=== PATIENT | female | born 1990 | race Hispanic/Latino ===

== ENCOUNTER 2019-01-11 19:35 | Emergency (ER) | payer BC, OTHER ==
[~2019-01-11] VITALS: Ht 152.4 cm; Wt 138.3 kg
--- OUTSIDE RECORDS SUMMARY | 2019-01-11 19:37 | XMS REPORT | CCD ---
Author Author Auto Generated Organization [facility] Address Unknown Phone Unavailable Care Team Providers Care Tile Machine Operator Name Role Phone Shaji Dave CP Allergies, Adverse Reactions, Alerts Substance Reaction Status NKDA Active Medications Medication Instructions Start Date End Date Status ciprofloxacin 500 mg 500 mg, 1 tab, PO, Q12H, 6 tab, 11/15/2011 11/18/2011 Ordered oral tablet Substitution Allowed, TAB Vital Signs Most recent to oldest [Reference Range]: 1 Height 152.40 cm (11/14/2011 23:01:00) Weight 113.636 kg (11/14/2011 23:01:00) Results URINALYSIS Most recent to oldest [Reference Range]: 1 UA Turbidity [Clear] Clear (11/15/2011 00:30:00) UA Color [Yellow] Yellow *NA* (11/15/2011 00:30:00) UA pH [5.0-8.0] 6.0 (11/15/2011 00:30:00) UA Spec Grav [<=1.030] 1.010 (11/15/2011 00:30:00) UA Glucose [Negative] Negative (11/15/2011 00:30:00) UA Blood [Negative] Negative (11/15/2011 00:30:00) UA Ketones [Negative] Negative *NA* (11/15/2011 00:30:00) UA Protein [Negative] Negative (11/15/2011 00:30:00) UA Urobilinogen [0.1-1.0 EU/dL] 0.2 EU/dL (11/15/2011 00:30:00) UA Bili [Negative] Negative *NA* (11/15/2011 00:30:00) UA Leuk Est [Negative] Trace *ABN* (11/15/2011 00:30:00) UA Nitrite [Negative] Negative (11/15/2011 00:30:00) UA WBC [0-5 /HPF] 11-20 /HPF *ABN* (11/15/2011 00:30:00) UA RBC [0-2] None Seen (11/15/2011 00:30:00) UA Bacteria [None Seen /HPF] Few /HPF (11/15/2011 00:30:00) UA Sq Epi [Few /LPF] Moderate /LPF *ABN* (11/15/2011 00:30:00) CHEMISTRY Most recent to oldest [Reference Range]: 1 U Preg [Negative] Negative (11/15/2011 00:30:00) Microbiology Reports PROCEDURE:Culture: Urine STATUS: In Progress BODY SITE: COLLECTED DATE/TIME: 11/15/2011 01:16:00 SOURCE: Urine, Clean Catch FREE TEXT SOURCE: PRELIMINARY REPORTS Preliminary Report >100,000 CFU/mL Gram Negative Rods, Lactose Fermenters Subculture In Progress
--- OUTSIDE RECORDS SUMMARY | 2019-01-11 19:37 | XMS REPORT | Continuity of Care Document ---
Author Author [facility] Address Unknown Phone Unavailable Care Team Providers Care Morning News Producer Name Role Phone Zoona Unavailable Unavailable Problems Problem Status Onset Date Classification Date Reported Comments Source GENERAL PAIN Active 01/11/2019 [facility] SHORTNESS OF BREATH, DIZZINESS Active 11/14/2011 [facility] Medications Medication Details Route Status Patient Instructions Ordering Provider Order Date Source ciprofloxacin 500 mg oral tablet 500 mg, 1 tab, PO, Q12H, 6 tab, Substitution Allowed, TAB PO Active Alevism 11/15/2011 [facility] Allergies, Adverse Reactions, Alerts No Known Medication Allergies Immunizations No Data Provided for This Section Results Order Name Results Value Reference Range Date Interpretation Comments Source Microbiology Culture: Urine 11/15/2011 [facility] CHEMISTRY U Preg Negative (11/15/2011 00:30:00) Negative 11/15/2011 Normal [facility] URINALYSIS UA Protein Negative (11/15/2011 00:30:00) Negative 11/15/2011 Normal [facility] URINALYSIS UA Ketones Negative *NA* (11/15/2011 00:30:00) Negative 11/15/2011 NA [facility] URINALYSIS UA Glucose Negative (11/15/2011 00:30:00) Negative 11/15/2011 Normal [facility] URINALYSIS UA Blood Negative (11/15/2011 00:30:00) Negative 11/15/2011 Normal [facility] URINALYSIS UA Bili Negative *NA* (11/15/2011 00:30:00) Negative 11/15/2011 NA [facility] URINALYSIS UA RBC None Seen (11/15/2011 00:30:00) 0 - 2 11/15/2011 Normal [facility] URINALYSIS UA Sq Epi Moderate /LPF *ABN* (11/15/2011 00:30:00) Few 11/15/2011 ABN [facility] URINALYSIS UA WBC 11-20 /HPF *ABN* (11/15/2011 00:30:00) 0 - 5 11/15/2011 ABN [facility] URINALYSIS UA Bacteria Few /HPF (11/15/2011 00:30:00) None Seen 11/15/2011 Normal [facility] URINALYSIS UA Urobilinogen 0.2 0.1 - 1.0 11/15/2011 Normal [facility] URINALYSIS UA Nitrite Negative (11/15/2011 00:30:00) Negative 11/15/2011 Normal [facility] URINALYSIS UA Leuk Est Trace *ABN* (11/15/2011 00:30:00) Negative 11/15/2011 ABN [facility] URINALYSIS UA Spec Grav 1.010 <=1.030 11/15/2011 Normal [facility] URINALYSIS UA pH 6.0 5.0 - 8.0 11/15/2011 Normal [facility] URINALYSIS UA Color Yellow *NA* (11/15/2011 00:30:00) Yellow 11/15/2011 NA [facility] URINALYSIS UA Turbidity Clear (11/15/2011 00:30:00) Clear 11/15/2011 Normal [facility] Pathology Reports No Data Provided for This Section Diagnostic Reports Report Value Date Source Chest 1view DX Clinical Indication: - chest pain; Comparison: None FINDINGS: The portable AP single view radiograph provided for review. The exam demonstrates mild decreased lung volumes without interstitial or airspace opacities, pleural effusions or pneumothorax. The heart size and pulmonary vasculature are normal. The trachea is midline. There are no clinically significant osseous abnormalities noted. IMPRESSION: No chest radiographic evidence of acute cardiopulmonary disease. SL: [id number] 01/11/2019 [facility] Consultation Notes No Data Provided for This Section Discharge Summaries No Data Provided for This Section History and Physicals No Data Provided for This Section Vital Signs Vital Sign Value Date Comments Source Height 152.40 cm 11/15/2011 [facility] Weight 113.636 11/15/2011 [facility] Encounters Location Location Details Encounter Type Encounter Number Reason For Visit Attending Provider ADM Date DC Date Status Source [facility] Emergency [id number] JAZZ HALEYBALL 11/14/2011 11/15/2011 Discharged [facility] Procedures No Data Provided for This Section Assessment and Plan No Data Provided for This Section Plan of Care No Data Provided for This Section Social History No Data Provided for This Section Family History No Data Provided for This Section Advance Directives No Data Provided for This Section Functional Status No Data Provided for This Section
[2019-01-11] MEDS ORDERED: ONDANSETRON HCL INJ 2MG/ML 2ML 2 MG/ML VIAL IV ONE (20:03)
[2019-01-11] MEDS ORDERED: MORPHINE SULFATE INJ 4 MG/ML INJ 1ML IV ONE (20:15)
[2019-01-11] MEDS ORDERED: SODIUM CHLORIDE 0.9% 1000ML 1,000 ML IV ONE (20:15)
[2019-01-11 21:00] LABS: BASOPHILS % 0.4 % (0.0-1.0); EOSINOPHILS % 0.3 % (0.0-6.0); HEMATOCRIT 41.2 % (34.2-44.1); HEMOGLOBIN 14.3 g/dL (12.0-16.0); LYMPHOCYTES # (AUTO) 1.3 (1.0-3.2); LYMPHOCYTES % 12.8 % (18.0-39.1); MEAN CORPUSCULAR HEMOGLOBIN 29.9 pg (28-32); MEAN CORPUSCULAR HGB CONC 34.7 g/dL (31-35); MEAN CORPUSCULAR VOLUME 86.2 fL (81-99); MONOCYTES # (AUTO) 0.6 (0.2-0.8); MONOCYTES % 5.7 % (4.4-11.3); NEUTROPHILS # (AUTO) 8.4 (2.1-6.9); NEUTROPHILS % 80.5 % (38.7-80.0); PLATELET COUNT 280 x10e3/uL (140-360); RED BLOOD COUNT 4.78 x10e6/uL (3.6-5.1); RED CELL DISTRIBUTION WIDTH 13.2 % (11.7-14.4)
[2019-01-11 21:24] LABS: ALANINE AMINOTRANSFERASE 67 IU/L (0-55); ALBUMIN 3.5 g/dL (3.5-5.0); ALBUMIN/GLOBULIN RATIO 0.8 (0.8-2.0); ALKALINE PHOSPHATASE 104 IU/L (40-150); ANION GAP 15.8 mmol/L (8-16); BLOOD UREA NITROGEN 8 mg/dL (7-26); BUN/CREATININE RATIO 10 (6-25); CALCIUM 9.1 mg/dL (8.4-10.2); CARBON DIOXIDE 21 mmol/L (22-29); CHLORIDE 103 mmol/L (98-107); CREATINE KINASE 78 IU/L (29-168); CREATININE, SERUM 0.82 mg/dL (0.57-1.11); EST GLOMERULAR FILTRATION RATE > 60 ML/MIN (60-); GLUCOSE 130 mg/dL (74-118); POTASSIUM 3.8 mmol/L (3.5-5.1); SODIUM 136 mmol/L (136-145)
[2019-01-11 21:42] LABS: AMYLASE 40 U/L (25-125); LIPASE 6 U/L (8-78)
[2019-01-11] MEDS ORDERED: IOPAMIDOL 370 MG/ML 200 ML INFUS..BTL INJ ONE (22:35)
[2019-01-11] MEDS ORDERED: SODIUM CHLORIDE 0.9% 50ML 50 ML ONE (22:35)
--- NOTE | 2019-01-11 22:42 | Diagnostic Imaging Report ---
EXAM: CT Abdomen and Pelvis WITH contrast INDICATION: ^LEFT SIE ABD PAIN N/V/D ^20190111 ^[id number] ^Y COMPARISON: None. TECHNIQUE: Abdomen and pelvis were scanned utilizing a multidetector helical scanner from the lung base to the pubic symphysis after administration of IV contrast. Coronal and sagittal reformations were obtained. Dose modulation, iterative reconstruction, and/or weight based adjustment of the mA/kV was utilized to reduce the radiation dose to as low as reasonably achievable. Routine protocol was performed. Scan was performed when during portal venous phase. IV CONTRAST: 100 mL of Isovue-370 ORAL CONTRAST: Water COMPLICATIONS: None RADIATION DOSE: Total DLP: 1440.62 mGy*cm Estimated effective dose: (DLP x 0.015 x size factor) mSv CTDIvol has been reviewed. It is below the limits set by the Radiation Protocol Committee (RPC). FINDINGS: LINES and TUBES: None. LOWER THORAX: 5 mm left lower lobe nodule. HEPATOBILIARY: No focal hepatic lesions. No biliary ductal dilation. GALLBLADDER: No radio-opaque stones or sludge. No wall thickening. SPLEEN: No splenomegaly. PANCREAS: No focal masses or ductal dilatation. ADRENALS: No adrenal nodules KIDNEYS/URETERS: Kidneys enhance symmetrically. Minimal right hydronephrosis and mild hydroureter. No cystic or solid mass lesions. No stones. GI TRACT: No abnormal distention, wall thickening, or evidence of bowel obstruction. Status post gastric lap band surgery. Appendix is normal. PELVIC ORGANS/BLADDER: Unremarkable. LYMPH NODES: No lymphadenopathy. VESSELS: Unremarkable. PERITONEUM / RETROPERITONEUM: No free air or fluid. BONES: Unremarkable. SOFT TISSUES: Unremarkable. IMPRESSION: 1. No acute infiltrate process in the abdomen/pelvis. 2. Minimal right hydronephrosis and mild hydroureter without evidence of obstructing calculus. Recently passed stone is a possibility. 3. 5 mm left lower lobe lung nodule. Without risk factors, no follow-up is necessary. With risk factors, follow-up with low-dose chest CT in one year is recommended. Signed by: Dr. Darian Valdivia MD on 01/11/2019 10:39 PM
[2019-01-11 23:20] LABS: BILIRUBIN,URINE NEGATIVE (NEGATIVE); CLARITY,URINE SL CLOUDY (CLEAR); COLOR,URINE YELLOW (YELLOW); KETONES,URINE NEGATIVE (NEGATIVE); LEUKOCYTE ESTERASE ,URINE NEGATIVE (NEGATIVE); NITRITE,URINE NEGATIVE (NEGATIVE); PROTEIN,URINE DIPSTICK NEGATIVE (NEGATIVE); URINE UROBILINOGEN 0.2 mg/dL (0.2 - 1)
[2019-01-11 23:29] LABS: BACTERIA,URINE FEW /HPF; EPITHELIAL CELLS,URINE MODERATE /LPF
== END 2019-01-12 | disposition home or self-care (01) ==
LOC: ER 19:35
DX: R10.13 Epigastric pain (principal); R10.32 Left lower quadrant pain; R30.0 Dysuria; N30.91 Cystitis, unspecified with hematuria; E66.9 Obesity, unspecified
CPT/HCPCS: 36415; 74177; 80053; 81001; 81025; 82150; 82550; 82553; 83690; 84484; 85025; 93005; 96374; 96375; 99284; J2270; J2405; J7030; Q9967

== ENCOUNTER 2020-03-14 18:45 | Emergency (ER) | payer BC, OTHER ==
[~2020-03-14] VITALS: Ht 152.4 cm; Wt 138.3 kg
[2020-03-14 21:38] LABS: BILIRUBIN,URINE SMALL (NEGATIVE); CLARITY,URINE CLOUDY (CLEAR); COLOR,URINE YELLOW (YELLOW); KETONES,URINE TRACE (NEGATIVE); LEUKOCYTE ESTERASE ,URINE NEGATIVE (NEGATIVE); NITRITE,URINE NEGATIVE (NEGATIVE); PREGNANCY TEST, URINE NEGATIVE (NEGATIVE); PROTEIN,URINE DIPSTICK TRACE (NEGATIVE); URINE UROBILINOGEN 0.2 mg/dL (0.2 - 1)
--- NOTE | 2020-03-14 21:39 | Emergency Department Note ---
History of Present Illnes History of Present Illness Chief Complaint: Back Pain History of Present Illness This is a 30 year old female presents to the ED for r flank pain with dysuria. Historian: Patient Arrival Mode: Car Onset (how long ago): week(s) (1) Radiation: Reports flank Severity: moderate Onset quality: gradual Duration (how long): week(s) (1) Timing of current episode: constant Progression: worsening Chronicity: new Relieving factors: none Exacerbating factors: none Associated symptoms: Reports fever/chills, Reports nausea/vomiting Past Medical/Family History Physician Review I have reviewed the patient's past medical and family history. Any updates have been documented here. Past Medical History Recent Fever: No Clinical Suspicion of Infectio: No New/Unexplained Change in Ment: No Past Medical History: Hypothyroidism, Kidney Stones Past Surgical History: Bariatric Surgery Other Surgery: LAP BAND Social History Smoking Cessation: Never Smoker Alcohol Use: None Physically hurt or threatened: No Other Last Tetanus: UTD Review of Systems Review of Systems Constitutional: Reports fever EENTM: Reports no symptoms Cardiovascular: Reports no symptoms Respiratory: Reports no symptoms Gastrointestinal: Reports nausea Genitourinary: Reports dysuria, Reports pain (flank) Musculoskeletal: Reports no symptoms Integumentary: Reports no symptoms Neurological: Reports no symptoms Psychological: Reports no symptoms Endocrine: Reports no symptoms Hematological/Lymphatic: Reports no symptoms Physical Exam Related Data Allergies: Coded Allergies: No Known Drug Allergies (Verified Allergy, Unknown, 01/11/19) Triage Vital Signs Vital Signs Date Time Temp Pulse Resp B/P (MAP) Pulse Ox O2 Delivery O2 Flow Rate FiO2 03/14/20 19:22 98.2 74 20 156/97 100 Room Air Vital signs reviewed: Yes Physical Exam CONSTITUTIONAL Constitutional: Present obese HENT HENT: Present normocephalic, Present atraumatic, Present oropharynx clear/moist, Present nose normal HENT L/R: Present left ext ear normal, Present right ext ear normal EYES Eyes: Reports PERRL, Reports conjunctivae normal NECK Neck: Present ROM normal PULMONARY Pulmonary: Present effort normal, Present breath sounds normal CARDIOVASCULAR Cardiovascular: Present regular rhythm, Present heart sounds normal, Present capillary refill normal, Present normal rate GASTROINTESTINAL Abdominal: Present right CVA tenderness GENITOURINARY Genitourinary: Present exam deferred SKIN Skin: Present warm, Present dry MUSCULOSKELETAL Musculoskeletal: Present ROM normal NEUROLOGICAL Neurological: Present alert, Present oriented x 3, Present no gross motor or sensory deficits PSYCHOLOGICAL Psychological: Present mood/affect normal, Present judgement normal Results Laboratory Laboratory Laboratory Tests Test 03/14/20 19:24 Urine Color Yellow (YELLOW) Urine Clarity Cloudy (CLEAR) Urine pH 5.5 (5 - 7) Urine Specific [place] 1.030 (1.010-1.025) Urine Protein Trace (NEGATIVE) Urine Glucose (UA) Negative (NEGATIVE) Urine Ketones Trace (NEGATIVE) Urine Blood Trace (NEGATIVE) Urine Nitrite Negative (NEGATIVE) Urine Bilirubin Small (NEGATIVE) Urine Urobilinogen 0.2 mg/dL (0.2 - 1) Urine Leukocyte Esterase Negative (NEGATIVE) Urine Test Negative (NEGATIVE) Assessment & Plan Medical Decision Making MDM Diff Dx : UTI, kidney infection, PID Assessment & Plan Final Impression: (1) Urinary tract infection Depart Disposition: HOME, SELF-CARE Last Vital Signs Date Time Temp Pulse Resp B/P (MAP) Pulse Ox O2 Delivery O2 Flow Rate FiO2 03/14/20 19:22 98.2 74 20 156/97 100 Room Air TIM MONZON DO Mar 14, 2020 21:39
[2020-03-14 21:50] LABS: BACTERIA,URINE MANY /HPF; EPITHELIAL CELLS,URINE MANY /LPF; RBC,URINE 0-5 /HPF (0-5); TRANSITIONAL EPI CELLS,URINE FEW
--- OUTSIDE RECORDS SUMMARY | 2020-03-16 16:31 | XMS REPORT | Continuity of Care Document ---
Author Author [facility] Organization [facility] Address [address] [place] [address] Phone Unavailable Care Team Providers Care Pulmonary Fellow Name Role Phone NO, PCP PCP Unavailable Darby DE LEON Attphymelchor Unavailable Payers Payer Name Policy Type Policy Number Effective Date Expiration Date S mirna [facility] [id number] 2019 [id number] 2019 00:[facility]00 [facility] Problems Condition Name Condition Details Condition Category Status Onset Date Resolution Date Last Treatment Date Treating Clinician Comments Source Urinary tract infection Problem Active [facility] Allergies, Adverse Reactions, Alerts Allergy Name Allergy Type Status Severity Reaction(s) Onset Date Inacti ve Date Treating Clinician Comments Source No Known Allergies DA Active U 2020-01-31 00:00:00 [facility] No Known Allergies DA Active U 2019-04-19 00:00:00 [facility] Social History Social Habit Start Date Stop Date Quantity Comments Source Sex Assigned At 1990 00:00:00 1990 00:00:00 Female [facility] Medications This patient has no known medications. Vital Signs Vital Name Observation Time Observation Value Comments Source Weight 2020-03-14 19:22:00 305 [lb_av] [facility] BMI (Body Mass Index) 2020-03-14 19:22:00 59.6 kg/m2 [facility] Procedures This patient has no known procedures. Plan of Care Planned Activity Planned Date Details Comments Source Instructions Urinary Tract Infection - Women [facility] Encounters Start Date/Time End Date/Time Encounter Type Admission Type Attendi [facility] Care Department Encounter ID Source 2020-03-14 19:40:00 2020-03-14 22:17:00 Departed Emergency Room [facility] [id number] [facility] 2019-01-11 19:35:00 2019-01-12 00:00:00 Departed Emergency Room [address] [facility] [id number] [facility] 2019-01-11 15:25:00 2019-01-11 15:25:00 Emergency E [facility] [address] [facility] Results Test Description Test Time Test Comments Results Result Comments Source Urine color determination 2020-03-14 19:24:00 Test Item Urine Color (test code = 5778-6) YELLOW YELLOW DARK [facility]LLOW[facility] [id number] 19:24:00* Test Item Value Reference Range Interpretation Comments Urine Clarity (test code = 61477-3) CLOUDY [facility]AR [facility] by Test strip 2020-03-14 19:24:00* Test Item Value Reference Range Interpretation Comments Urine Specific [place] (test code = 5811-5) 1.030 1.010-1.02 5 [facility] pH measurement by automated test [id number] 19:24:00* Test Item Value Reference Range Interpretation Comments Urine pH (test code = 88509-0) 5.5 5-7 [facility] leukocyte esterase detection by [id number] 19:24:00* Test Item Value Reference Range Interpretation Comments Urine Leukocyte Esterase (test code = 5799-2) NEGATIVE NEGATIVE [facility] nitrite [id number] 19:24:00* Test Item Value Reference Range Interpretation Comments Urine Nitrite (test code = 63429-8) NEGATIVE NEGATIVE [facility] protein measurement by test strip (mass/volume)2020-03-14 19:24:00* Test Item Value Reference Range Interpretation Comments Urine Protein (test code = 5804-0) TRACE NEGATIVE [facility] glucose [id number] 19:24:00* Test Item Value Reference Range Interpretation Comments Urine Glucose (UA) (test code = 2349-9) NEGATIVE NEGATIVE [facility] ketones detection by automated test [id number] 19:24:00* Test Item Value Reference Range Interpretation Comments Urine Ketones (test code = 07543-3) TRACE NEGATIVE [facility] urobilinogen measurement by test strip (mass/volume)2020-03-14 19:24:00* Test Item Value Reference Range Interpretation Comments Urine Urobilinogen (test code = 67171-0) 0.2 0.2-1 [facility] total bilirubin measurement (mass/volume)2020-03-14 19:24:00* Test Item Value Reference Range Interpretation Comments Urine Bilirubin (test code = 1978-6) SMALL NEGATIVE [facility] erythrocytes [id number] 19:24:00* Test Item Value Reference Range Interpretation Comments Urine Blood (test code = 55492-4) TRACE NEGATIVE [facility] sediment leukocyte count by microscopy (number/high power field)2020-03-14 19:24:00* Test Item Value Reference Range Interpretation Comments Urine WBC (test code = 5821-4) NONE 0-5 [facility]rythrocytes detection in urine sediment by light [id number] 19:24:00* Test Item Value Reference Range Interpretation Comments Urine RBC (test code = 61075-3) 0-5 0-5 [facility] detection in urine sediment by light [id number] 19:24:00* Test Item Value Reference Range Interpretation Comments Urine Bacteria (test code = 11022-5) MANY NONE [facility]Allen[facility]pithelial cells detection in urine sediment by light [id number] 19:24:00* Test Item Value Reference Range Interpretation Comments Urine Epithelial Cells (test code = 74925-6) MANY NONE [facility]AllenTransitional cells detection in urine sediment by light [id number] 19:24:00* Test Item Value Reference Range Interpretation Comments Urine Transitional Epithelial Cells (test code = 8249-5) FEW NONE [facility] human chorionic gonadotropin (hCG) [id number] 19:24:00* Test Item Value Reference Range Interpretation Comments Urine Test (test code = 2106-3) NEGATIVE NEGATIVE [facility] 15[facility]24[facility]00 RUN DATE: 02/05/20 [facility] PAGE 1 RUN TIME: 1524 Specimen Inqui ry RUN USER: INTERFACE PATIENT: HARITHA MIRAMONTES ACCT #: [id number] LOC: [place] U #: [id number] AGE/SX: 30/F ROOM: [facility] RE02/05/20[facility] DR: Charli Buckley MD : 86 BED: A DIS: STATUS: ADM IN TLOC: SPEC #: [id number] RECD: 02/04/20 STATUS: MALENA LOTT #: [id number] JEFRY: 02/04/20- SUBM DR: Charli Buckley MD ENTERED: 02/04/20 SP TYPE: STOMACH OTHR DR: Sheela Tammy melinda or Family Physician Ish Sandoval MDORDERED: GROSS COPIES TO: No Primary or Family Physic Charli Reza MD [address] [place] [address] Ish Sandoval MD [address] [place] [address] P ROCEDURES: GROSS (02/05/20-144) TISSUES: STOMACH, NOS - PORTION OF [facility] CLINICAL HISTORY COLLECTION DATE: 02/04/20 FINAL DIAGNOS IS Portion of stomach, laparoscopic sleeve gastrectomy: GASTRIC MUCOSA , NO PATHOLOGIC ALTERATION DMW/jono D [id number] MACROSCOPIC The specimen is received in formalin, labeled with the patient's name, and i dentified as "portion of stomach". It consists of a portion of stomach which measures 18 x 4 x 3.3 cm. A few adhesions are noted on the serosal surface. The mucosal margins are stapled. The stomach is opened and contains a small a mount of bloody fluid. The mucosal folds appear unremarkable. A sample of th e specimen is submitted for microscopic examination in a single cassette. CONTINUED ON NEXT PAGE RUN DATE: 02/05/20 [facility] PAGE 2 RUN TIME: 1524 Specimen Inquiry RUN USER: INTERFACE -- SPEC #: [id number] PATIENT: HARITHA MIRAMONTES #[id number] (Continued) MACROSCOPIC (Continued) GROSS PERFORMED AT [facility] [address] [place] [address] (P)[phone] MICROSCOPIC All of the stains, including any controls performed, stain appropriately. MICROSCOPIC PERFORMED AT [facility] [address] [place] [address] [phone] PERFORMING SITE Diagnosis performed at: [facility] are [facility], [place] [address] [place] [address] Signed SIGNATURE Marie Dumont MD 02/05/20 1524 END OF REPORT BASIC METABOLIC [id number] 07:39:00* Test Item Value Reference Range Interpretation Comments SODIUM (test code = NA) 140 mmol/L 136-145 N POTASSIUM (test code = K) 4.4 mmol/L 3.5-5.1 N CHLORIDE (test code = CL) 109.0 mmol/L 98-107 H CARBON DIOXIDE (test code = CO2) 25.0 mmol/L 21-32 N ANION GAP (test code = GAP) 10.4 10-20 N GLUCOSE (test code = GLU) 95 mg/dL 74-106 N BLOOD UREA NITROGEN (test code = BUN) 7 mg/dL 7-18 N GLOMERULAR FILTRATION RATE (test code = GFR) > 60 mL/min >=60 Estimated GFR by using Modified MDRD formula.Chronic kidney disease is defined as either kidney damageor GFR <60 mL/min/1.73 m2 for >3 months. CREATININE (test code = CREAT) 0.70 mg/dL 0.55-1.02 N Note change in reference range due to change in reagent. BUN/CREATININE RATIO (test code = BUN/CREA) 10.1 10-20 N CALCIUM (test code = CA) 8.4 mg/dL 8.5-10.1 L CBC W/AUTO [id number] 06:46:00* Test Item Value Reference Range Interpretation Comments WHITE BLOOD CELL (test code = WBC) 15.2 K/mm3 4.5-12.5 H RED BLOOD CELL (test code = RBC) 4.60 mill/mm3 3.7-5.2 N HEMOGLOBIN (test code = HGB) 13.4 gram/dL 11.5-15.5 N HEMATOCRIT (test code = HCT) 41.7 % 36.0-46.0 N MEAN CELL VOLUME (test code = MCV) 90.7 fL 80-98 N MEAN CELL HGB (test code = MCH) 29.1 picogram 27.0-33.0 N MEAN CELL HGB CONCETRATION (test code = MCHC) 32.1 gram/dL 33.0-36. 0 L RED CELL DISTRIBUTION WIDTH (test code = RDW) 14.0 % 11.6-16. 2 N RED CELL DISTRIBUTION WIDTH SD (test code = RDW-SD) 46.2 fL 37 .0-51.0 N PLATELET COUNT (test code = PLT) 302 K/mm3 150-450 N MEAN PLATELET VOLUME (test code = MPV) 9.6 fL 6.7-11.0 N NEUTROPHIL % (test code = NT%) 84.2 % 39.0-69.0 H IMMATURE GRANULOCYTE % (test code = IG%) 0.4 % 0.0-5.0 N LYMPHOCYTE % (test code = LY%) 9.3 % 25.0-55.0 L MONOCYTE % (test code = MO%) 6.0 % 0.0-10.0 N EOSINOPHIL % (test code = EO%) 0.0 % 0.0-5.0 N BASOPHIL % (test code = BA%) 0.1 % 0.0-1.0 N NUCLEATED RBC % (test code = NRBC%) 0.0 % 0-0 N NEUTROPHIL # (test code = NT#) 12.84 K/mm3 1.8-7.7 H IMMATURE GRANULOCYTE # (test code = IG#) 0.06 x10 3/uL 0-0.03 H LYMPHOCYTE # (test code = LY#) 1.41 K/mm3 1.0-5.0 N MONOCYTE # (test code = MO#) 0.91 K/mm3 0-0.8 H EOSINOPHIL # (test code = EO#) 0.00 K/mm3 0.0-0.5 N BASOPHIL # (test code = BA#) 0.02 K/mm3 0.0-0.2 N NUCLEATED RBC # (test code = NRBC#) 0.00 K/mm3 0.0-0.1 N CBC W/AUTO [id number] 06:40:00* Test Item Value Reference Range Interpretation Comments WHITE BLOOD CELL (test code = WBC) K/mm3 4.5-12.5 RED BLOOD CELL (test code = RBC) mill/mm3 3.7-5.2 HEMOGLOBIN (test code = HGB) 13.4 gram/dL 11.5-15.5 N HEMATOCRIT (test code = HCT) 41.7 % 36.0-46.0 N MEAN CELL VOLUME (test code = MCV) fL 80-98 MEAN CELL HGB (test code = MCH) picogram 27.0-33.0 MEAN CELL HGB CONCETRATION (test code = MCHC) gram/dL 33.0-36. 0 RED CELL DISTRIBUTION WIDTH (test code = RDW) % 11.6-16. 2 RED CELL DISTRIBUTION WIDTH SD (test code = RDW-SD) fL 37 .0-51.0 PLATELET COUNT (test code = PLT) 302 K/mm3 150-450 N MEAN PLATELET VOLUME (test code = MPV) fL 6.7-11.0 NEUTROPHIL % (test code = NT%) % 39.0-69.0 IMMATURE GRANULOCYTE % (test code = IG%) % 0.0-5.0 LYMPHOCYTE % (test code = LY%) % 25.0-55.0 MONOCYTE % (test code = MO%) % 0.0-10.0 EOSINOPHIL % (test code = EO%) % 0.0-5.0 BASOPHIL % (test code = BA%) % 0.0-1.0 NEUTROPHIL # (test code = NT#) K/mm3 1.8-7.7 LYMPHOCYTE # (test code = LY#) K/mm3 1.0-5.0 MONOCYTE # (test code = MO#) K/mm3 0-0.8 EOSINOPHIL # (test code = EO#) K/mm3 0.0-0.5 BASOPHIL # (test code = BA#) K/mm3 0.0-0.2 HCG SERUM [id number] 08:07:00* Test Item Value Reference Range Interpretation Comments HCG SERUM QUAL (test code = HCGQL) NEGATIVE NEGATIVE This HCGQL test is NOT applicable for MALE patients.Check with nurse about probable order error.If Tumor Marker Test needed, nurse should order test "HCGTU"(Test #550.09403) [id number] 08:01:00* Test Item Value Reference Range Interpretation Comments GLUBED (test code = GLUBED) 81 mg/dL 74-106 N Performed by certified dyed yarn operator at [facility] Novel Coronavirus 02:06:00* Test Item Value Reference Range Interpretation Comments Novel Coronavirus 2019 Inhouse (test code = [id number]) Negative Negative Positive results are indicative of the presence zxVQQF-GmZ-8 RNA, clinical correlation with patient historyand other diagnostic information is necessary to determinepatient infection status. Positive results do not rule outbacterial infection or co-infection with other viruses. Negative results do not preclude SARS-CoV-2 infection andshould not be used as the sole basis for patient managementdecisions. Negative results must be combined with otherclinical observations, patient history, and epidemiologicalinformation. Detection of SARS-CoV-2 RNA may be affected bysample collection methods, storage conditions, and/or stageof infection. Viral RNA mutations, vaccinations, antiviraltherapeutics, antibiotics, chemotherapeutic orimmunosuppressant drugs have not been evaluated for effectson detection. Results are for the identification of SARS-CoV-2 RNA usingthe Murphy M2000 System under the FDA Emergency UseAuthorization. The testing is performed by personneltrained in the procedures for the Murphy M2000 moleculardiagnostic SARS-CoV-2 assay in vitro. Novel Coronavirus [id number] 02:06:00* Test Item Value Reference Range Interpretation Comments Novel Coronavirus 2019 Inhouse (test code = [id number]) Negative Negative Positive results are indicative of the presence njEQGC-XmZ-7 RNA, clinical correlation with patient historyand other diagnostic information is necessary to determinepatient infection status. Positive results do not rule outbacterial infection or co-infection with other viruses. Negative results do not preclude SARS-CoV-2 infection andshould not be used as the sole basis for patient managementdecisions. Negative results must be combined with otherclinical observations, patient history, and epidemiologicalinformation. Detection of SARS-CoV-2 RNA may be affected bysample collection methods, storage conditions, and/or stageof infection. Viral RNA mutations, vaccinations, antiviraltherapeutics, antibiotics, chemotherapeutic orimmunosuppressant drugs have not been evaluated for effectson detection. Results are for the identification of SARS-CoV-2 RNA usingthe Murphy M2000 System under the FDA Emergency UseAuthorization. The testing is performed by personneltrained in the procedures for the Murphy M2000 moleculardiagnostic SARS-CoV-2 assay in vitro. COMPREHENSIVE METABOLIC [id number] 14:29:00* Test Item Value Reference Range Interpretation Comments SODIUM (test code = NA) 139 mmol/L 136-145 N POTASSIUM (test code = K) 4.2 mmol/L 3.5-5.1 N CHLORIDE (test code = CL) 104.0 mmol/L 98-107 N CARBON DIOXIDE (test code = CO2) 29.0 mmol/L 21-32 N ANION GAP (test code = GAP) 10.2 10-20 N GLUCOSE (test code = GLU) 86 mg/dL 74-106 N BLOOD UREA NITROGEN (test code = BUN) 12 mg/dL 7-18 N GLOMERULAR FILTRATION RATE (test code = GFR) > 60 mL/min >=60 Estimated GFR by using Modified MDRD formula.Chronic kidney disease is defined as either kidney damageor GFR <60 mL/min/1.73 m2 for >3 months. CREATININE (test code = CREAT) 0.70 mg/dL 0.55-1.02 N Note change in reference range due to change in reagent. BUN/CREATININE RATIO (test code = BUN/CREA) 16.2 10-20 N TOTAL PROTEIN (test code = PROT) 8.6 gram/dL 6.4-8.2 H ALBUMIN (test code = ALB) 3.6 g/dL 3.4-5.0 N GLOBULIN (test code = GLOB) 5.0 gram/dL 2.7-4.2 H ALBUMIN/GLOBULIN RATIO (test code = A/G) 0.7 0.75-1.50 L CALCIUM (test code = CA) 9.6 mg/dL 8.5-10.1 N BILIRUBIN TOTAL (test code = BILT) 0.40 mg/dL 0.0-1.0 N SGOT/AST (test code = AST) 65 IUnit/L 15-37 H SGPT/ALT (test code = ALT) 91 IUnit/L 12-78 H ALKALINE PHOSPHATASE TOTAL (test code = ALKP) 117 IUnit/L 45-117 N Note change in reference range due to change in reagent. COMPREHENSIVE METABOLIC [id number] 14:21:00* Test Item Value Reference Range Interpretation Comments SODIUM (test code = NA) 139 mmol/L 136-145 N POTASSIUM (test code = K) 4.2 mmol/L 3.5-5.1 N CHLORIDE (test code = CL) 104.0 mmol/L 98-107 N CARBON DIOXIDE (test code = CO2) mmol/L 21-32 ANION GAP (test code = GAP) 10-20 GLUCOSE (test code = GLU) mg/dL 74-106 BLOOD UREA NITROGEN (test code = BUN) mg/dL 7-18 GLOMERULAR FILTRATION RATE (test code = GFR) mL/min >=60 CREATININE (test code = CREAT) mg/dL 0.55-1.02 BUN/CREATININE RATIO (test code = BUN/CREA) 10-20 TOTAL PROTEIN (test code = PROT) gram/dL 6.4-8.2 ALBUMIN (test code = ALB) g/dL 3.4-5.0 GLOBULIN (test code = GLOB) gram/dL 2.7-4.2 ALBUMIN/GLOBULIN RATIO (test code = A/G) 0.75-1.50 CALCIUM (test code = CA) mg/dL 8.5-10.1 BILIRUBIN TOTAL (test code = BILT) mg/dL 0.0-1.0 SGOT/AST (test code = AST) IUnit/L 15-37 SGPT/ALT (test code = ALT) IUnit/L 12-78 ALKALINE PHOSPHATASE TOTAL (test code = ALKP) IUnit/L 45-117 CBC W/AUTO [id number] 13:55:00* Test Item Value Reference Range Interpretation Comments WHITE BLOOD CELL (test code = WBC) 10.0 K/mm3 4.5-12.5 N RED BLOOD CELL (test code = RBC) 4.98 mill/mm3 3.7-5.2 N HEMOGLOBIN (test code = HGB) 14.6 gram/dL 11.5-15.5 N HEMATOCRIT (test code = HCT) 43.6 % 36.0-46.0 N MEAN CELL VOLUME (test code = MCV) 87.6 fL 80-98 N MEAN CELL HGB (test code = MCH) 29.3 picogram 27.0-33.0 N MEAN CELL HGB CONCETRATION (test code = MCHC) 33.5 gram/dL 33.0-36. 0 N RED CELL DISTRIBUTION WIDTH (test code = RDW) 13.4 % 11.6-16. 2 N RED CELL DISTRIBUTION WIDTH SD (test code = RDW-SD) 42.3 fL 37 .0-51.0 N PLATELET COUNT (test code = PLT) 317 K/mm3 150-450 N MEAN PLATELET VOLUME (test code = MPV) 9.2 fL 6.7-11.0 N NEUTROPHIL % (test code = NT%) 68.9 % 39.0-69.0 N IMMATURE GRANULOCYTE % (test code = IG%) 0.3 % 0.0-5.0 N LYMPHOCYTE % (test code = LY%) 22.1 % 25.0-55.0 L MONOCYTE % (test code = MO%) 6.7 % 0.0-10.0 N EOSINOPHIL % (test code = EO%) 1.6 % 0.0-5.0 N BASOPHIL % (test code = BA%) 0.4 % 0.0-1.0 N NUCLEATED RBC % (test code = NRBC%) 0.0 % 0-0 N NEUTROPHIL # (test code = NT#) 6.89 K/mm3 1.8-7.7 N IMMATURE GRANULOCYTE # (test code = IG#) 0.03 x10 3/uL 0-0.03 N LYMPHOCYTE # (test code = LY#) 2.21 K/mm3 1.0-5.0 N MONOCYTE # (test code = MO#) 0.67 K/mm3 0-0.8 N EOSINOPHIL # (test code = EO#) 0.16 K/mm3 0.0-0.5 N BASOPHIL # (test code = BA#) 0.04 K/mm3 0.0-0.2 N NUCLEATED RBC # (test code = NRBC#) 0.00 K/mm3 0.0-0.1 N CBC W/AUTO [id number] 13:54:00* Test Item Value Reference Range Interpretation Comments WHITE BLOOD CELL (test code = WBC) K/mm3 4.5-12.5 RED BLOOD CELL (test code = RBC) mill/mm3 3.7-5.2 HEMOGLOBIN (test code = HGB) 14.6 gram/dL 11.5-15.5 N HEMATOCRIT (test code = HCT) 43.6 % 36.0-46.0 N MEAN CELL VOLUME (test code = MCV) fL 80-98 MEAN CELL HGB (test code = MCH) picogram 27.0-33.0 MEAN CELL HGB CONCETRATION (test code = MCHC) gram/dL 33.0-36. 0 RED CELL DISTRIBUTION WIDTH (test code = RDW) % 11.6-16. 2 RED CELL DISTRIBUTION WIDTH SD (test code = RDW-SD) fL 37 .0-51.0 PLATELET COUNT (test code = PLT) 317 K/mm3 150-450 N MEAN PLATELET VOLUME (test code = MPV) fL 6.7-11.0 NEUTROPHIL % (test code = NT%) % 39.0-69.0 IMMATURE GRANULOCYTE % (test code = IG%) % 0.0-5.0 LYMPHOCYTE % (test code = LY%) % 25.0-55.0 MONOCYTE % (test code = MO%) % 0.0-10.0 EOSINOPHIL % (test code = EO%) % 0.0-5.0 BASOPHIL % (test code = BA%) % 0.0-1.0 NEUTROPHIL # (test code = NT#) K/mm3 1.8-7.7 LYMPHOCYTE # (test code = LY#) K/mm3 1.0-5.0 MONOCYTE # (test code = MO#) K/mm3 0-0.8 EOSINOPHIL # (test code = EO#) K/mm3 0.0-0.5 BASOPHIL # (test code = BA#) K/mm3 0.0-0.2 [id number] 16:57:00 RUN DATE: 04/23/19 [facility] PAGE 1 RUN TIME: 1657 Specimen Inqui ry RUN USER: INTERFACE PATIENT: HARITHA MIRAMONTES ACCT #: V [id number] LOC: [place] U #: [id number] AGE/SX: 29/F ROOM: RE04/20[facility]19[facility] DR: Charli Buckley MD : 86 BED: DIS: STATUS: PRE SDC TLOC: SPEC #: [id number] RECD: 04/20/19 STATUS: MALENA REQ #: [id number] JEFRY: 04/20/[address] [facility] [address]: Charli Buckley MD ENTERED: 04/20/19 SP TYPE: DEVICE OTHR DR: Sheela Tammy melinda or Family Physician Self ReferredORDERED: FLAKITA COPIES TO: No Primary or Family Physician Edna f Referred Charli Buckley MD [address] [place] [address] PROCEDURES: FLAKITA (04/23/19) TISSUES: NO TISSUE - GASTRIC BAND CLINICAL HISTORY COLLECTION DATE: 04/20/2019 GASTRIC BAND SLIPPAGE FINAL DIAGNOSIS Gastric band, removal: GASTRIC BAND A ND PORT-A-CATH DMW/jono D [id number] MACROSCOPIC The specim en is received in a container labeled with the patient's name and identified a s "gastric band for ID only". It consists of a gastric band which is received in two portions. It has the following inscription "ALLERGAN". Also received is a port-a-cath with some attached rubber tubing. It has the following insc ription "11.0", "ALLERGAN" and "[id number]". FLAKITA PERFORMED AT [facility] CONTINUED ON NEXT PAGE RUN DATE: 04/23/19 [facility] PAGE 2 RUN TIME: 1656 Specimen Inquiry RUN USER: INTERFACE SPEC #: [id number] PATIENT: HARITHA MIRAMONTES #[id number] (Continued)-- MACROSCOPIC (Continued) [address] [place] [id number] [phone] Signed SIGNATURE ON FILE Marie Orozco MD 04/23/19 1659 END OF REPORT CBC W/AUTO [id number] 11:30:00* Test Item Value Reference Range Interpretation Comments WHITE BLOOD CELL (test code = WBC) 8.6 K/mm3 4.5-12.5 N RED BLOOD CELL (test code = RBC) 5.21 mill/mm3 3.7-5.2 H HEMOGLOBIN (test code = HGB) 15.2 gram/dL 11.5-15.5 N HEMATOCRIT (test code = HCT) 45.3 % 36.0-46.0 N MEAN CELL VOLUME (test code = MCV) 86.9 fL 80-98 N MEAN CELL HGB (test code = MCH) 29.2 picogram 27.0-33.0 N MEAN CELL HGB CONCETRATION (test code = MCHC) 33.6 gram/dL 33.0-36. 0 N RED CELL DISTRIBUTION WIDTH (test code = RDW) 12.9 % 11.6-16. 2 N RED CELL DISTRIBUTION WIDTH SD (test code = RDW-SD) 40.1 fL 37 .0-51.0 N PLATELET COUNT (test code = PLT) 309 K/mm3 150-450 N MEAN PLATELET VOLUME (test code = MPV) 9.2 fL 6.7-11.0 N NEUTROPHIL % (test code = NT%) 68.2 % 39.0-69.0 N IMMATURE GRANULOCYTE % (test code = IG%) 0.2 % 0.0-5.0 N LYMPHOCYTE % (test code = LY%) 23.1 % 25.0-55.0 L MONOCYTE % (test code = MO%) 6.6 % 0.0-10.0 N EOSINOPHIL % (test code = EO%) 1.6 % 0.0-5.0 N BASOPHIL % (test code = BA%) 0.3 % 0.0-1.0 N NUCLEATED RBC % (test code = NRBC%) 0.0 % 0-0 N NEUTROPHIL # (test code = NT#) 5.85 K/mm3 1.8-7.7 N IMMATURE GRANULOCYTE # (test code = IG#) 0.02 x10 3/uL 0-0.03 N LYMPHOCYTE # (test code = LY#) 1.98 K/mm3 1.0-5.0 N MONOCYTE # (test code = MO#) 0.57 K/mm3 0-0.8 N EOSINOPHIL # (test code = EO#) 0.14 K/mm3 0.0-0.5 N BASOPHIL # (test code = BA#) 0.03 K/mm3 0.0-0.2 N NUCLEATED RBC # (test code = NRBC#) 0.00 K/mm3 0.0-0.1 N MANUAL DIFF REQUIRED (test code = MDIFF) NO COMPREHENSIVE METABOLIC [id number] 11:12:00* Test Item Value Reference Range Interpretation Comments SODIUM (test code = NA) 142 mmol/L 136-145 N POTASSIUM (test code = K) 4.1 mmol/L 3.5-5.1 N CHLORIDE (test code = CL) 107.0 mmol/L 98-107 N CARBON DIOXIDE (test code = CO2) 28.0 mmol/L 21-32 N ANION GAP (test code = GAP) 11.1 10-20 N GLUCOSE (test code = GLU) 97 mg/dL 74-106 N BLOOD UREA NITROGEN (test code = BUN) 11 mg/dL 7-18 N GLOMERULAR FILTRATION RATE (test code = GFR) > 60 mL/min >=60 Estimated GFR by using Modified MDRD formula.Chronic kidney disease is defined as either kidney damageor GFR <60 mL/min/1.73 m2 for >3 months. CREATININE (test code = CREAT) 0.70 mg/dL 0.55-1.02 N Note change in reference range due to change in reagent. BUN/CREATININE RATIO (test code = BUN/CREA) 15.1 10-20 N TOTAL PROTEIN (test code = PROT) 8.2 gram/dL 6.4-8.2 N ALBUMIN (test code = ALB) 3.4 g/dL 3.4-5.0 N GLOBULIN (test code = GLOB) 4.8 gram/dL 2.7-4.2 H ALBUMIN/GLOBULIN RATIO (test code = A/G) 0.7 0.75-1.50 L CALCIUM (test code = CA) 8.8 mg/dL 8.5-10.1 N BILIRUBIN TOTAL (test code = BILT) 0.40 mg/dL 0.0-1.0 N SGOT/AST (test code = AST) 39 IUnit/L 15-37 H SGPT/ALT (test code = ALT) 62 IUnit/L 12-78 N ALKALINE PHOSPHATASE TOTAL (test code = ALKP) 116 IUnit/L 45-117 N Note change in reference range due to change in reagent. HCG SERUM [id number] 11:12:00* Test Item Value Reference Range Interpretation Comments HCG SERUM QUAL (test code = HCGQL) NEGATIVE NEGATIVE This HCGQL test is NOT applicable for MALE patients.Check with nurse about probable order error.If Tumor Marker Test needed, nurse should order test "HCGTU"(Test #550.07476) CBC W/AUTO [id number] 11:10:00* Test Item Value Reference Range Interpretation Comments WHITE BLOOD CELL (test code = WBC) K/mm3 4.5-12.5 RED BLOOD CELL (test code = RBC) mill/mm3 3.7-5.2 HEMOGLOBIN (test code = HGB) 15.2 gram/dL 11.5-15.5 N HEMATOCRIT (test code = HCT) 45.3 % 36.0-46.0 N MEAN CELL VOLUME (test code = MCV) fL 80-98 MEAN CELL HGB (test code = MCH) picogram 27.0-33.0 MEAN CELL HGB CONCETRATION (test code = MCHC) gram/dL 33.0-36. 0 RED CELL DISTRIBUTION WIDTH (test code = RDW) % 11.6-16. 2 RED CELL DISTRIBUTION WIDTH SD (test code = RDW-SD) fL 37 .0-51.0 PLATELET COUNT (test code = PLT) K/mm3 150-450 MEAN PLATELET VOLUME (test code = MPV) fL 6.7-11.0 NEUTROPHIL % (test code = NT%) % 39.0-69.0 IMMATURE GRANULOCYTE % (test code = IG%) % 0.0-5.0 LYMPHOCYTE % (test code = LY%) % 25.0-55.0 MONOCYTE % (test code = MO%) % 0.0-10.0 EOSINOPHIL % (test code = EO%) % 0.0-5.0 BASOPHIL % (test code = BA%) % 0.0-1.0 NEUTROPHIL # (test code = NT#) K/mm3 1.8-7.7 LYMPHOCYTE # (test code = LY#) K/mm3 1.0-5.0 MONOCYTE # (test code = MO#) K/mm3 0-0.8 EOSINOPHIL # (test code = EO#) K/mm3 0.0-0.5 BASOPHIL # (test code = BA#) K/mm3 0.0-0.2 COMPREHENSIVE METABOLIC [id number] 10:48:00* Test Item Value Reference Range Interpretation Comments SODIUM (test code = NA) 142 mmol/L 136-145 N POTASSIUM (test code = K) 4.1 mmol/L 3.5-5.1 N CHLORIDE (test code = CL) 107.0 mmol/L 98-107 N CARBON DIOXIDE (test code = CO2) 28.0 mmol/L 21-32 N ANION GAP (test code = GAP) 11.1 10-20 N GLUCOSE (test code = GLU) 97 mg/dL 74-106 N BLOOD UREA NITROGEN (test code = BUN) 11 mg/dL 7-18 N GLOMERULAR FILTRATION RATE (test code = GFR) > 60 mL/min >=60 Estimated GFR by using Modified MDRD formula.Chronic kidney disease is defined as either kidney damageor GFR <60 mL/min/1.73 m2 for >3 months. CREATININE (test code = CREAT) 0.70 mg/dL 0.55-1.02 N Note change in reference range due to change in reagent. BUN/CREATININE RATIO (test code = BUN/CREA) 15.1 10-20 N TOTAL PROTEIN (test code = PROT) 8.2 gram/dL 6.4-8.2 N ALBUMIN (test code = ALB) 3.4 g/dL 3.4-5.0 N GLOBULIN (test code = GLOB) 4.8 gram/dL 2.7-4.2 H ALBUMIN/GLOBULIN RATIO (test code = A/G) 0.7 0.75-1.50 L CALCIUM (test code = CA) 8.8 mg/dL 8.5-10.1 N BILIRUBIN TOTAL (test code = BILT) 0.40 mg/dL 0.0-1.0 N SGOT/AST (test code = AST) 39 IUnit/L 15-37 H SGPT/ALT (test code = ALT) 62 IUnit/L 12-78 N ALKALINE PHOSPHATASE TOTAL (test code = ALKP) 116 IUnit/L 45-117 N Note change in reference range due to change in reagent. HCG SERUM [id number] 10:48:00* Test Item Value Reference Range Interpretation Comments HCG SERUM QUAL (test code = HCGQL) NEGATIVE COMPREHENSIVE METABOLIC [id number] 10:26:00* Test Item Value Reference Range Interpretation Comments SODIUM (test code = NA) 142 mmol/L 136-145 N POTASSIUM (test code = K) 4.1 mmol/L 3.5-5.1 N CHLORIDE (test code = CL) 107.0 mmol/L 98-107 N CARBON DIOXIDE (test code = CO2) mmol/L 21-32 ANION GAP (test code = GAP) 10-20 GLUCOSE (test code = GLU) mg/dL 74-106 BLOOD UREA NITROGEN (test code = BUN) mg/dL 7-18 GLOMERULAR FILTRATION RATE (test code = GFR) mL/min >=60 CREATININE (test code = CREAT) mg/dL 0.55-1.02 BUN/CREATININE RATIO (test code = BUN/CREA) 10-20 TOTAL PROTEIN (test code = PROT) gram/dL 6.4-8.2 ALBUMIN (test code = ALB) g/dL 3.4-5.0 GLOBULIN (test code = GLOB) gram/dL 2.7-4.2 ALBUMIN/GLOBULIN RATIO (test code = A/G) 0.75-1.50 CALCIUM (test code = CA) mg/dL 8.5-10.1 BILIRUBIN TOTAL (test code = BILT) mg/dL 0.0-1.0 SGOT/AST (test code = AST) IUnit/L 15-37 SGPT/ALT (test code = ALT) IUnit/L 12-78 ALKALINE PHOSPHATASE TOTAL (test code = ALKP) IUnit/L 45-117 Urine [id number] 23:29:00* Test Item Value Reference Range Interpretation Comments Urine WBC (test code = 5821-4) 6-10 0-5 H [facility] [id number] 23:29:00* Test Item Value Reference Range Interpretation Comments Urine RBC (test code = 42794-8) 11-20 0-5 H [facility] [id number] 23:29:00* Test Item Value Reference Range Interpretation Comments Urine Bacteria (test code = 71849-7) FEW NONE [facility] Epithelial [id number] 23:29:00 * Test Item Value Reference Range Interpretation Comments Urine Epithelial Cells (test code = 77757-0) MODERATE NONE [facility] [id number] 23:22:00* Test Item Value Reference Range Interpretation Comments Urine Color (test code = 5778-6) YELLOW YELLOW [facility] [id number] 23:22:00* Test Item Value Reference Range Interpretation Comments Urine Clarity (test code = 72081-4) SL CLOUDY CLEAR [facility] Specific [id number] 23:22:00 * Test Item Value Reference Range Interpretation Comments Urine Specific [place] (test code = 5811-5) <=1.005 1.010-1.02 5 [facility] [id number] 23:22:00* Test Item Value Reference Range Interpretation Comments Urine pH (test code = 19294-5) 6.5 5-7 [facility] Leukocyte [id number] 23:22:00* Test Item Value Reference Range Interpretation Comments Urine Leukocyte Esterase (test code = 04478-7) NEGATIVE NEGATIV E [facility] [id number] 23:22:00* Test Item Value Reference Range Interpretation Comments Urine Nitrite (test code = 79397-4) NEGATIVE NEGATIVE [facility] [id number] 23:22:00* Test Item Value Reference Range Interpretation Comments Urine Protein (test code = 47182-0) NEGATIVE NEGATIVE [facility] Glucose (UA)2019-01-11 23:22:00* Test Item Value Reference Range Interpretation Comments Urine Glucose (UA) (test code = 05798-0) NEGATIVE NEGATIVE [facility] [id number] 23:22:00* Test Item Value Reference Range Interpretation Comments Urine Ketones (test code = 94976-8) NEGATIVE NEGATIVE [facility] [id number] 23:22:00* Test Item Value Reference Range Interpretation Comments Urine Urobilinogen (test code = 82028-8) 0.2 0.2-1 [facility] [id number] 23:22:00* Test Item Value Reference Range Interpretation Comments Urine Bilirubin (test code = 1977-8) NEGATIVE NEGATIVE [facility] [id number] 23:22:00* Test Item Value Reference Range Interpretation Comments Urine Blood (test code = 78633-0) MODERATE NEGATIVE [facility]AllenCT ABDOMEN/PELVIS [id number] 22:31:00 [place] [address] Patient Name: HARITHA MIRAMONTES MR #: [id number] : 1989 Age/Sex: 28/F Req #: [id number] Adm Physician: Ordered by: MAKENZIE DE LEON MD Report #: [id number] Location: ER Room/Bed: Procedure: [id number] CT/CT ABDOMEN/PELVIS W Exam Date: 01/11/19 Kiko frederick Time: 2144 REPORT STATUS: Signed EXAM: CT Abdomen and Pelvis WITH contrast INDICATION: LEFT SIE A BD PAIN N/V/D [id number] COMPARISON: None. TECHNIQUE: Abdomen and pelvis were scanned utilizing a multidetector helical scanner from the yvonne ng base to the pubic symphysis after administration of IV contrast. Coronal an d sagittal reformations were obtained. Dose modulation, iterative reconstructi on, and/or weight based adjustment of the mA/kV was utilized to reduce the rad iation dose to as low as reasonably achievable. Routine protocol was performed . Scan was performed when during portal venous phase. IV CONTRAST: 100 mL of Isovue-370 ORAL CONTRAST: Water COMPLICATIONS: None RADIATION DOSE: Total DLP: 1440.62 mGy*cm Estimated eff ective dose: (DLP x 0.015 x size factor) mSv CTDIvol has been reviewed. I t is below the limits set by the Radiation Protocol Committee (RPC). FIND INGS: LINES and TUBES: None. LOWER THORAX: 5 mm left lower lobe nodul e. HEPATOBILIARY: No focal hepatic lesions. No biliary ductal dilation . GALLBLADDER: No radio-opaque stones or sludge. No wall thickening. SPLEEN: No splenomegaly. PANCREAS: No focal masses or ductal dilatation. ADRENALS: No adrenal nodules KIDNEYS/URETERS: Kidneys enhance sy mmetrically. Minimal right hydronephrosis and mild hydroureter. No cystic or solid mass lesions. No stones. GI TRACT: No abnormal distention, wall thic kening, or evidence of bowel obstruction. Status post gastric lap band surger y. Appendix is normal. PELVIC ORGANS/BLADDER: Unremarkable. LYMPH NOD ES: No lymphadenopathy. VESSELS: Unremarkable. PERITONEUM / RETROPERIT ONEUM: No free air or fluid. BONES: Unremarkable. SOFT TISSUES: Unrema rkable. IMPRESSION: 1. No acute infiltrate process in the a bdomen/pelvis. 2. Minimal right hydronephrosis and mild hydroureter without e vidence of obstructing calculus. Recently passed stone is a possibility. 3. 5 mm left lower lobe lung nodule. Without risk factors, no follow-up is neces dena. With risk factors, follow-up with low-dose chest CT in one year is recom mended. Signed by: Dr. Darian Hanley MD on 01/11/2019 10:39 PM Dicta giselle By: DARIAN HANLEY MD 38 Transcribed By: GRACIE on 01/11/192238 COPY TO: VON DE LEON MD Amylase [id number] 21:43:00* Test Item Value Reference Range Interpretation Comments Amylase Level (test code = 1798-8) 40 25-125 [facility]Allen[facility]2019-07-[facility] 21:43:00* Test Item Value Reference Range Interpretation Comments Lipase (test code = 3040-3) 6 8-78 L [facility]AllenCreatine Kinase [id number] 21:31:00* Test Item Value Reference Range Interpretation Comments Creatine Kinase MB (test code = 18397-6) 0.60 0-5.0 [facility]AllenTroponin [id number] 21:31:00* Test Item Value Reference Range Interpretation Comments Troponin I (test code = NTS0891) < 0.001 0-0.300 [facility] [id number] 21:25:00* Test Item Value Reference Range Interpretation Comments Sodium Level (test code = 2951-2) 136 136-145 [facility]AllenPotassium Plywz5347-07-21 21:25:00* Test Item Value Reference Range Interpretation Comments Potassium Level (test code = 2823-3) 3.8 3.5-5.1 [facility]AllenChloride Tbikr3039-13-20 21:25:00* Test Item Value Reference Range Interpretation Comments Chloride Level (test code = 2075-0) 103 98-107 [facility]AllenCarbon Dioxide [id number] 21:25:00* Test Item Value Reference Range Interpretation Comments Carbon Dioxide Level (test code = 2028-9) 21 22-29 L [facility] McAllenAnion [id number] 21:25:00* Test Item Value Reference Range Interpretation Comments Anion Gap (test code = 74051-7) 15.8 8-16 [facility]AllenBlood Urea Szeddzlh6330-00-35 21:25:00* Test Item Value Reference Range Interpretation Comments Blood Urea Nitrogen (test code = 3094-0) 8 7-26 [facility]AllenCreatinine2019-07-25 21:25:00* Test Item Value Reference Range Interpretation Comments Creatinine (test code = 2160-0) 0.82 0.57-1.11 [facility]AllenBUN/Creatinine Gtokx8903-66-95 21:25:00* Test Item Value Reference Range Interpretation Comments BUN/Creatinine Ratio (test code = 3097-3) 10 6-25 [facility] McAllenEstimat Glomerular Filtration Rate 2019-01-11 21:25:00* Test Item Value Reference Range Interpretation Comments Estimat Glomerular Filtration Rate (test code = 821966250) > 60 >60 Ranges were taken from the National Kidney Disease Education Program and the [employer] literature.Reference ranges:60 or greater: Wjmjqz25-63 ( for 3 consecutive months): Chronic kidney disease 15 or less: Kidney failureCH[facility] Midloth[facility] Medical CenterGlucose Iysaf6373-68-48 21:25:00* Test Item Value Reference Range Interpretation Comments Glucose Level (test code = NSP4191) 130 74-118 H [facility]AllenCalcium Seihy5685-69-73 21:25:00* Test Item Value Reference Range Interpretation Comments Calcium Level (test code = 70246-7) 9.1 8.4-10.2 [facility] McAllenTotal Himxcpmhb3910-66-82 21:25:00* Test Item Value Reference Range Interpretation Comments Total Bilirubin (test code = 1975-2) 0.5 0.2-1.2 [facility] McAllenAspartate Amino Transf (AST/SGOT) 2019-01-11 21:25:00* Test Item Value Reference Range Interpretation Comments Aspartate Amino Transf (AST/SGOT) (test code = Aspartate Amino Transf (AST/SGOT)) 49 5-34 H [facility] McAllenAlanine Aminotransferase (ALT/SGPT) 2019-01-11 21:25:00* Test Item Value Reference Range Interpretation Comments Alanine Aminotransferase (ALT/SGPT) (test code = 1742-6) 67 0-55 H [facility] McAllenTotal Vewwtsg9638-31-03 21:25:00* Test Item Value Reference Range Interpretation Comments Total Protein (test code = 2885-2) 7.9 6.5-8.1 [facility] McAllenAlbumin2019-07-25 21:25:00* Test Item Value Reference Range Interpretation Comments Albumin (test code = 1751-7) 3.5 3.5-5.0 [facility]AllenGlobulin2019-07-25 21:25:00* Test Item Value Reference Range Interpretation Comments Globulin (test code = 57511-8) 4.4 2.3-3.5 H [facility] McAllenAlbumin/Globulin Jkcwy8738-92-25 21:25:00 * Test Item Value Reference Range Interpretation Comments Albumin/Globulin Ratio (test code = 1759-0) 0.8 0.8-2.0 [facility]AllenAlkaline Eoiimsrnykp5841-20-66 21:25:00* Test Item Value Reference Range Interpretation Comments Alkaline Phosphatase (test code = 6768-6) 104 40-150 [facility]AllenCreatine Xlxswp6916-67-05 21:25:00* Test Item Value Reference Range Interpretation Comments Creatine Kinase (test code = 2157-6) 78 29-168 [facility]AllenUrine Qumr4477-27-58 21:24:00* Test Item Value Reference Range Interpretation Comments Urine Test (test code = 2106-3) NEGATIVE NEGATIVE [facility] McAllenWhite Blood Clyxy2018-04-38 21:04:00* Test Item Value Reference Range Interpretation Comments White Blood Count (test code = 6690-2) 10.48 4.8-10.8 [facility]AllenRed Blood Zzmwj4940-90-00 21:04:00* Test Item Value Reference Range Interpretation Comments Red Blood Count (test code = 789-8) 4.78 3.6-5.1 [facility]AllenHemoglobin2019-07-25 21:04:00* Test Item Value Reference Range Interpretation Comments Hemoglobin (test code = 24558-8) 14.3 12.0-16.0 [facility]AllenHematocrit2019-07-25 21:04:00* Test Item Value Reference Range Interpretation Comments Hematocrit (test code = 4544-3) 41.2 34.2-44.1 [facility] McAllenMean Corpuscular Uxbota9880-25-91 21:04:00* Test Item Value Reference Range Interpretation Comments Mean Corpuscular Volume (test code = 787-2) 86.2 81-99 [facility] McAllenMean Corpuscular Xtbttwuvxb6126-44-25 21:04:00* Test Item Value Reference Range Interpretation Comments Mean Corpuscular Hemoglobin (test code = 785-6) 29.9 28-32 [facility] McAllenMean Corpuscular Hemoglobin Concent 2019-01-11 21:04:00* Test Item Value Reference Range Interpretation Comments Mean Corpuscular Hemoglobin Concent (test code = 786-4) 34.7 31-35 [facility] McAllenRed Cell Distribution Ckoto8227-93-95 21:04:00* Test Item Value Reference Range Interpretation Comments Red Cell Distribution Width (test code = 02890-8) 13.2 11.7 -14.4 [facility] McAllenPlatelet Abigz3127-85-06 21:04:00* Test Item Value Reference Range Interpretation Comments Platelet Count (test code = 777-3) 280 140-360 [facility] McAllenNeutrophils (%) (Auto)2019-01-11 21:04:00 * Test Item Value Reference Range Interpretation Comments Neutrophils (%) (Auto) (test code = 42080-2) 80.5 38.7-80.0 H [facility] McAllenLymphocytes (%) (Auto)2019-01-11 21:04:00 * Test Item Value Reference Range Interpretation Comments Lymphocytes (%) (Auto) (test code = 736-9) 12.8 18.0-39.1 L [facility]AllenMonocytes (%) (Auto)2019-01-11 21:04:00* Test Item Value Reference Range Interpretation Comments Monocytes (%) (Auto) (test code = 5905-5) 5.7 4.4-11.3 [facility]AllenEosinophils (%) (Auto)2019-01-11 21:04:00 * Test Item Value Reference Range Interpretation Comments Eosinophils (%) (Auto) (test code = 713-8) 0.3 0.0-6.0 [facility]AllenBasophils (%) (Auto)2019-01-11 21:04:00* Test Item Value Reference Range Interpretation Comments Basophils (%) (Auto) (test code = 706-2) 0.4 0.0-1.0 [facility] McAllenIM GRANULOCYTES %2019-01-11 21:04:00* Test Item Value Reference Range Interpretation Comments IM GRANULOCYTES % (test code = IM GRANULOCYTES %) 0.3 0.0- 1.0 [facility]AllenNeutrophils # (Auto)2019-01-11 21:04:00* Test Item Value Reference Range Interpretation Comments Neutrophils # (Auto) (test code = 751-8) 8.4 2.1-6.9 H [facility]AllenLymphocytes # (Auto)2019-01-11 21:04:00* Test Item Value Reference Range Interpretation Comments Lymphocytes # (Auto) (test code = 69617-4) 1.3 1.0-3.2 [facility]AllenMonocytes # (Auto)2019-01-11 21:04:00* Test Item Value Reference Range Interpretation Comments Monocytes # (Auto) (test code = 742-7) 0.6 0.2-0.8 [facility]AllenEosinophils # (Auto)2019-01-11 21:04:00* Test Item Value Reference Range Interpretation Comments Eosinophils # (Auto) (test code = 711-2) 0.0 0.0-0.4 [facility]AllenBasophils # (Auto)2019-01-11 21:04:00* Test Item Value Reference Range Interpretation Comments Basophils # (Auto) (test code = 704-7) 0.0 0.0-0.1 [facility] McAllenAbsolute Immature Granulocyte (auto 2019-01-11 21:04:00* Test Item Value Reference Range Interpretation Comments Absolute Immature Granulocyte (auto (pham t code = Absolute Immature Granulocyte (auto) 0.03 0-0.1 [facility]
== END 2020-03-14 22:17 | disposition home or self-care (01) ==
LOC: ER 19:40
DX: M54.5 Low back pain (principal); R30.0 Dysuria; N39.0 Urinary tract infection, site not specified; Z98.84 Bariatric surgery status; E03.9 Hypothyroidism, unspecified
CPT/HCPCS: 81001; 81025; 99282

== ENCOUNTER 2021-02-04 06:28 | Emergency (ER) | payer BC, OTHER ==
[~2021-02-04] VITALS: Ht 162.6 cm; Wt 90.7 kg
[2021-02-04] MEDS ORDERED: ONDANSETRON HCL INJ 2MG/ML 2ML 2 MG/ML VIAL IV STA (06:54)
[2021-02-04] MEDS ORDERED: KETOROLAC TROMETHAMINE 30 MG/ML VIAL IV STA (06:54)
[2021-02-04] MEDS ORDERED: FENTANYL CITRATE/PF 100MCG/2 ML INJ IV ONE (07:00)
[2021-02-04 07:06] LABS: BASOPHILS % 0.3 % (0.0-1.0); EOSINOPHILS % 0.3 % (0.0-6.0); HEMATOCRIT 41.2 % (34.2-44.1); HEMOGLOBIN 13.5 g/dL (12.0-16.0); LYMPHOCYTES # (AUTO) 0.6 (1.0-3.2); LYMPHOCYTES % 8.1 % (18.0-39.1); MEAN CORPUSCULAR HEMOGLOBIN 28.9 pg (28-32); MEAN CORPUSCULAR HGB CONC 32.8 g/dL (31-35); MEAN CORPUSCULAR VOLUME 88.2 fL (81-99); MONOCYTES # (AUTO) 0.7 (0.2-0.8); MONOCYTES % 9.6 % (4.4-11.3); NEUTROPHILS # (AUTO) 5.6 (2.1-6.9); NEUTROPHILS % 81.4 % (38.7-80.0); PLATELET COUNT 231 x10e3/uL (140-360); RED BLOOD COUNT 4.67 x10e6/uL (3.6-5.1); RED CELL DISTRIBUTION WIDTH 13.2 % (11.7-14.4)
[2021-02-04 07:30] LABS: ALBUMIN 3.5 g/dL (3.5-5.0); ALBUMIN/GLOBULIN RATIO 0.9 (0.8-2.0); CALCIUM 8.4 mg/dL (8.4-10.2); CREATININE, SERUM 0.76 mg/dL (0.57-1.11)
[2021-02-04 10:24] LABS: AMPHETAMINES SCREEN,URINE NEGATIVE (NEGATIVE); BENZODIAZEPINES SCREEN,URINE NEGATIVE (NEGATIVE); PHENCYCLIDINE SCREEN,URINE NEGATIVE (NEGATIVE)
[2021-02-04 10:26] LABS: CLARITY,URINE CLOUDY (CLEAR); COLOR,URINE YELLOW (YELLOW); LEUKOCYTE ESTERASE ,URINE 1+ (NEGATIVE); NITRITE,URINE NEGATIVE (NEGATIVE); PROTEIN,URINE DIPSTICK NEGATIVE (NEGATIVE)
[2021-02-04 10:27] LABS: KETONES,URINE NEGATIVE (NEGATIVE); URINE UROBILINOGEN 1 mg/dL (0.2 - 1)
[2021-02-04 11:01] LABS: BACTERIA,URINE MANY /HPF; EPITHELIAL CELLS,URINE MANY /LPF; WBC,URINE (MAN) 21-50 /HPF (0-5)
[2021-02-04] MEDS ORDERED: CEPHALEXIN500 MG PO ×2 (11:05→11:14)
== END 2021-02-04 11:23 | disposition home or self-care (01) ==
LOC: ER 07:56
DX: M54.5 Low back pain (principal); R31.9 Hematuria, unspecified; N39.0 Urinary tract infection, site not specified; E03.9 Hypothyroidism, unspecified; Z98.84 Bariatric surgery status
CPT/HCPCS: 36415; 74176; 80053; 80307; 81001; 84702; 85025; 99284; J1885; J2405; J3010

== ENCOUNTER 2021-11-02 23:32 | Emergency (ER) | payer BC ==
[~2021-11-02] VITALS: Ht 162.6 cm; Wt 90.7 kg
[~2021-11-02 23:32] MED LIST: CEPHALEXIN500 MG PO
[2021-11-03] MEDS ORDERED: BELLADONNA ALK/PHENOBARBITAL 5 ML UDC PO SCH (00:30)
[2021-11-03] MEDS ORDERED: MAGNESIUM/ALUMINUM/SIMETHICONE 30 ML UDC PO ONE (00:30)
[2021-11-03] MEDS ORDERED: LIDOCAINE VISC 2% SOLN 15 ML UDC PO ONE (00:30)
[2021-11-03] MEDS ORDERED: DONNATAL/LIDOCAINE/MAALOX 30 ML SUSP PO SCH (09:00)
== END 2021-11-03 02:04 | disposition home or self-care (01) ==
LOC: ER 23:50
DX: R09.89 Other specified symptoms and signs involving the circulatory and respiratory systems (principal); T18.9XXA Foreign body of alimentary tract, part unspecified, initial encounter; E03.9 Hypothyroidism, unspecified; Z87.442 Personal history of urinary calculi; Z98.84 Bariatric surgery status
CPT/HCPCS: 99282